=== PATIENT | female | born 1940 | race Caucasian/White ===

== ENCOUNTER 2016-10-22 12:30 | Emergency (ER) | payer MEDICARE, MEDICAID ==
[~2016-10-22] VITALS: Wt 90.7 kg
[~2016-10-22 12:30] MED LIST: ACCUPRIL10 MG PO; CLINDAMYCIN HC300 MG PO; COMBIVENT1 ARO INH; COREG3.125 MG PO; DYAZIDE 25 MG-31 CAP PO; METFORMIN1000 MG PO; METFORMIN500 MG PO; MOTRIN800 MG PO; TRAMADOL50 MG PO; ULTRAM50 MG PO
[2016-10-22] MEDS ORDERED: ACETAMINOHPEN/C1 TAB PO (12:32)
[2016-10-22] MEDS ORDERED: AVPAK AZITHROM250 M1 PO (12:32)
[2016-10-22] MEDS ORDERED: Lopressor25 MG PO (12:32)
[2016-10-22] MEDS ORDERED: NITROGLYCERIN0.4 MG SL (12:32)
[2016-10-22] MEDS ORDERED: MAGNESIUM250 M2 PO (12:33)
[2016-10-22] MEDS ORDERED: COMBIVENT RESPIM4 GM INH (12:33)
== END 2016-10-22 14:53 | disposition home or self-care (01) ==
LOC: ED 12:30
DX: S92.512A Displaced fracture of proximal phalanx of left lesser toe(s), initial encounter for closed fracture (principal); F17.200 Nicotine dependence, unspecified, uncomplicated; Z90.49 Acquired absence of other specified parts of digestive tract; Z79.899 Other long term (current) drug therapy; Z88.0 Allergy status to penicillin; Z88.1 Allergy status to other antibiotic agents; Z88.2 Allergy status to sulfonamides; Z88.6 Allergy status to analgesic agent; Z91.041 Radiographic dye allergy status; W22.8XXA Striking against or struck by other objects, initial encounter; Y93.01 Activity, walking, marching and hiking; Y92.9 Unspecified place or not applicable; Y99.9 Unspecified external cause status

== ENCOUNTER 2017-06-21 04:42 | Emergency (ER) | payer MEDICARE, MEDICAID ==
[~2017-06-21] VITALS: Wt 77.1 kg
[~2017-06-21 04:42] MED LIST changes: +ACETAMINOHPEN/C1 TAB PO; +AVPAK AZITHROM250 M1 PO; +COMBIVENT RESPIM4 GM INH; +Lopressor25 MG PO; +MAGNESIUM250 M2 PO; +NITROGLYCERIN0.4 MG SL
[2017-06-21 05:09] LABS: HEMATOCRIT 48.2 % (37.0-47.0); HEMOGLOBIN 16.5 g/dl (12.0-16.0); MEAN CELL VOLUME 92.3 fl (81.0-99.0); MEAN CORPUSCULAR HGB 31.6 pg (27.0-31.0); MEAN CORPUSCULAR HGB CONC 34.2 g/dl (33.0-37.0); PLATELET COUNT AUTOMATED 139 10*3/uL (130-400); RED BLOOD COUNT 5.22 10*6/uL (4.10-5.10); RED CELL DISTRI WIDTH 13.7 % (0-14.5); WHITE BLOOD COUNT 6.2 10*3/uL (4.8-10.8)
[2017-06-21 05:28] LABS: TOTAL CELLS COUNTED 100 #CELLS
[2017-06-21 05:29] LABS: BURR CELLS MANY; PLATELET SUFFICIENCY NORMAL (NORMAL)
[2017-06-21 05:32] LABS: CREATININE 1.34 mg/dL (0.55-1.02); POTASSIUM 3.7 mmol/L (3.5-5.1); TOTAL PROTEIN 7.1 gm/dL (6.4-8.2); TROPONIN I 0.016 ng/ml (<0.045)
== END 2017-06-21 07:47 | disposition short-term general hospital (02) ==
LOC: ED 04:42
PROVIDERS: Emergency Medicine Emergency Medical Services
DX: I48.91 Unspecified atrial fibrillation (principal); J44.9 Chronic obstructive pulmonary disease, unspecified; E83.42 Hypomagnesemia; A08.4 Viral intestinal infection, unspecified; Z88.0 Allergy status to penicillin; Z91.041 Radiographic dye allergy status; Z88.2 Allergy status to sulfonamides; Z88.1 Allergy status to other antibiotic agents; Z88.5 Allergy status to narcotic agent; Z79.899 Other long term (current) drug therapy; Z79.84 Long term (current) use of oral hypoglycemic drugs; Z90.710 Acquired absence of both cervix and uterus

== ENCOUNTER → 2017-10-16 | Outpatient (CLI) | payer MEDICARE, MEDICAID | END | disposition home or self-care (01) | LOC: MRI 09:55 | DX: M48.061 Spinal stenosis, lumbar region without neurogenic claudication (principal); M43.16 Spondylolisthesis, lumbar region ==

== ENCOUNTER → 2018-09-16 | Outpatient (CLI) | payer MEDICARE, MEDICAID | END | disposition home or self-care (01) | LOC: US 14:09 | DX: M79.89 Other specified soft tissue disorders (principal); R60.0 Localized edema; Z91.81 History of falling ==

== ENCOUNTER 2021-10-23 13:41 | Inpatient (IN) | payer MEDICARE, MEDICAID ==
[2021-10-23] VITALS (12 sets, daily range): BP systolic 78–120; BP diastolic 48–67
[~2021-10-23] VITALS: Ht 162.5 cm; Wt 88.0 kg
[2021-10-23 14:29] LABS: BASO # 0.1 10*3/uL (0.0-0.1); BASO % 0.8 % (0.0-1.0); EOS # 0.2 10*3/uL (0.0-0.4); EOS % 2.1 % (1.0-4.0); HEMATOCRIT 38.9 % (37.0-47.0); LYMPH # 1.4 10*3/uL (1.3-4.4); LYMPH % 18.1 % (27.0-41.0); MEAN CELL VOLUME 89.2 fl (81.0-99.0); MEAN CORPUSCULAR HGB 27.1 pg (27.0-31.0); MEAN CORPUSCULAR HGB CONC 30.3 g/dl (33.0-37.0); MEAN PLATELET VOLUME 11.3 fl (9.6-12.3); MONO # 0.7 10*3/uL (0.1-1.0); MONO % 9.6 % (3.0-9.0); NEUT # 5.3 10*3/uL (2.3-7.9); NEUT % 69.1 % (47.0-73.0); PLATELET COUNT AUTOMATED 144 10*3/uL (130-400); RED BLOOD COUNT 4.36 10*6/uL (4.10-5.10); RED CELL DISTRI WIDTH 17.5 % (0-14.5); WHITE BLOOD COUNT 7.6 10*3/uL (4.8-10.8)
[2021-10-23 14:41] LABS: INTERNATIONAL NORM RATIO 1.1 (2.0-3.5)
[2021-10-23 14:49] LABS: ALKALINE PHOSPHATASE 76 U/L (45-117); BUN 16 mg/dl (7-24); CHLORIDE 111 mmol/L (98-107); CREATININE 0.85 mg/dL (0.55-1.02); LIPASE 83 U/L (73-393); POTASSIUM 4.3 mmol/L (3.5-5.1); SGOT/AST 16 IU/L (3-35); SGPT/ALT 13 U/L (12-78); SODIUM 142 mmol/L (136-145); TOTAL PROTEIN 6.2 gm/dL (6.4-8.2)
[2021-10-23] MEDS ORDERED: METFORMIN HYDR500 MG PO (18:28)
[2021-10-23] MEDS ORDERED: TRELEGY ELLIPT1 EACH INH (18:31)
[2021-10-23] MEDS ORDERED: METFORMIN HYD1000 MG PO (18:32)
[2021-10-23] MEDS ORDERED: OMEPRAZOLE MAGN20 M1 PO (18:33)
[2021-10-23] MEDS ORDERED: K-TAB20 MEQ PO (18:35)
[2021-10-23] MEDS ORDERED: MYRBETRIQ50 M1 PO (18:35)
[2021-10-23] MEDS ORDERED: LANTUS SOL100 UNIT/1 SQ (18:38)
[2021-10-23] MEDS ORDERED: VITAMIN D-40010 MCG PO (18:41)
[2021-10-24] VITALS (7 sets, daily range): BP systolic 101–135; BP diastolic 45–62
[2021-10-24 01:56] LABS: BILIRUBIN Negative (Negative); BLOOD Negative (Negative); CLARITY Cloudy (Clear); COLOR Yellow (Yellow); GLUCOSE Negative (Negative); KETONE Negative (Negative); LEUKO ESTERASE Trace (Negative); NITRITE Positive (Negative); PH 6.5 (4.5-8.0); SPECIFIC GRAVITY 1.015 (1.001-1.030)
[2021-10-24 02:10] LABS: BACTERIA 4+; EPITHELIAL CELLS 31-40
[2021-10-24 03:04] LABS: BASO % 0.6 % (0.0-1.0); EOS # 0.2 10*3/uL (0.0-0.4); EOS % 2.6 % (1.0-4.0); HEMATOCRIT 33.9 % (37.0-47.0); LYMPH # 1.2 10*3/uL (1.3-4.4); LYMPH % 18.5 % (27.0-41.0); MEAN CELL VOLUME 88.5 fl (81.0-99.0); MEAN CORPUSCULAR HGB 27.7 pg (27.0-31.0); MEAN CORPUSCULAR HGB CONC 31.3 g/dl (33.0-37.0); MEAN PLATELET VOLUME 10.7 fl (9.6-12.3); MONO # 0.6 10*3/uL (0.1-1.0); MONO % 9.5 % (3.0-9.0); NEUT # 4.3 10*3/uL (2.3-7.9); NEUT % 68.6 % (47.0-73.0); PLATELET COUNT AUTOMATED 111 10*3/uL (130-400); RED BLOOD COUNT 3.83 10*6/uL (4.10-5.10); RED CELL DISTRI WIDTH 17.5 % (0-14.5); WHITE BLOOD COUNT 6.2 10*3/uL (4.8-10.8)
[2021-10-24 03:20] LABS: ALKALINE PHOSPHATASE 65 U/L (45-117); BUN 17 mg/dl (7-24); CHLORIDE 112 mmol/L (98-107); CHOLESTEROL 87 mg/dL (<200); CREATININE 0.71 mg/dL (0.55-1.02); LDL CHOLESTEROL 32 mg/dL (9-159); POTASSIUM 3.8 mmol/L (3.5-5.1); SGOT/AST 44 IU/L (3-35); SGPT/ALT 14 U/L (12-78); SODIUM 144 mmol/L (136-145); TOTAL PROTEIN 5.5 gm/dL (6.4-8.2); TRIGLYCERIDES 52 mg/dl (<150)
[2021-10-25] VITALS: BP 124/45
[2021-10-25 06:11] LABS: BUN 17 mg/dl (7-24); CHLORIDE 113 mmol/L (98-107); CREATININE 0.71 mg/dL (0.55-1.02); POTASSIUM 4.3 mmol/L (3.5-5.1); SODIUM 144 mmol/L (136-145)
[2021-10-25 06:28] LABS: BASO # 0.1 10*3/uL (0.0-0.1); BASO % 0.8 % (0.0-1.0); EOS # 0.3 10*3/uL (0.0-0.4); EOS % 3.5 % (1.0-4.0); HEMATOCRIT 33.7 % (37.0-47.0); LYMPH # 1.8 10*3/uL (1.3-4.4); LYMPH % 22.8 % (27.0-41.0); MEAN CELL VOLUME 89.4 fl (81.0-99.0); MEAN CORPUSCULAR HGB 27.9 pg (27.0-31.0); MEAN CORPUSCULAR HGB CONC 31.2 g/dl (33.0-37.0); MEAN PLATELET VOLUME 10.8 fl (9.6-12.3); MONO # 0.7 10*3/uL (0.1-1.0); MONO % 9.1 % (3.0-9.0); NEUT # 4.9 10*3/uL (2.3-7.9); NEUT % 63.2 % (47.0-73.0); PLATELET COUNT AUTOMATED 123 10*3/uL (130-400); RED BLOOD COUNT 3.77 10*6/uL (4.10-5.10); RED CELL DISTRI WIDTH 17.7 % (0-14.5); WHITE BLOOD COUNT 7.8 10*3/uL (4.8-10.8)
[2021-10-25 08:00] VITALS: BP 135/44
[2021-10-25 12:00] VITALS: BP 139/80
[2021-10-25 15:59] VITALS: BP 141/63
[2021-10-25 20:00] VITALS: BP 141/82
[2021-10-26] VITALS: BP 143/56
[2021-10-26 06:22] LABS: BASO # 0.1 10*3/uL (0.0-0.1); BASO % 1.1 % (0.0-1.0); HEMATOCRIT 38.4 % (37.0-47.0); LYMPH # 0.6 10*3/uL (1.3-4.4); MEAN CELL VOLUME 88.5 fl (81.0-99.0); MEAN CORPUSCULAR HGB 27.4 pg (27.0-31.0); MEAN PLATELET VOLUME 11.4 fl (9.6-12.3); MONO # 0.1 10*3/uL (0.1-1.0); MONO % 1.5 % (3.0-9.0); NEUT # 3.9 10*3/uL (2.3-7.9); NEUT % 83.1 % (47.0-73.0); PLATELET COUNT AUTOMATED 150 10*3/uL (130-400); RED BLOOD COUNT 4.34 10*6/uL (4.10-5.10); RED CELL DISTRI WIDTH 17.3 % (0-14.5); WHITE BLOOD COUNT 4.7 10*3/uL (4.8-10.8)
[2021-10-26 06:29] LABS: BUN 16 mg/dl (7-24); CHLORIDE 111 mmol/L (98-107); CREATININE 0.73 mg/dL (0.55-1.02); POTASSIUM 4.5 mmol/L (3.5-5.1); SODIUM 143 mmol/L (136-145)
[2021-10-26 07:52] VITALS: BP 172/90
== END 2021-10-26 08:06 | disposition short-term general hospital (02) | DRG 280 ==
LOC: ED 13:41 → 4E 15:24 → EDHOLD 15:24 → 4E 17:11
PROVIDERS: Emergency Medicine; Internal Medicine; ADMIT Student in an Organized Health Care Education/Training Program; ATTEND Student in an Organized Health Care Education/Training Program
DX: I21.4 Non-ST elevation (NSTEMI) myocardial infarction (principal); R65.11 Systemic inflammatory response syndrome (SIRS) of non-infectious origin with acute organ dysfunction; I47.1 Supraventricular tachycardia; E87.2 Acidosis; E44.0 Moderate protein-calorie malnutrition; I10 Essential (primary) hypertension; D64.9 Anemia, unspecified; F17.210 Nicotine dependence, cigarettes, uncomplicated; E83.42 Hypomagnesemia; E83.39 Other disorders of phosphorus metabolism; E11.65 Type 2 diabetes mellitus with hyperglycemia; Z88.0 Allergy status to penicillin; Z88.2 Allergy status to sulfonamides; Z88.1 Allergy status to other antibiotic agents; Z91.041 Radiographic dye allergy status; Z88.8 Allergy status to other drugs, medicaments and biological substances; Z79.899 Other long term (current) drug therapy; Z71.6 Tobacco abuse counseling